=== PATIENT | male | born 1960 | race Hispanic/Latino ===

== ENCOUNTER → 2024-06-07 | Day surgery (SDC) | payer OTHER ==
[~2024-06-07] MED LIST: ALLOPURINOL300 MG PO; ASPIRIN EC81 MG PO; ATORVASTATIN CA20 MG PO; FENTANYL CITRATE/PF 100MCG/2 ML INJ ONE; GLIMEPIRIDE2 MG PO; LOSARTAN POTASS25 MG PO; METFORMIN HCL500 MG PO; PHENYLEPHRINE HCL 1% 10 MG/ML VIAL ONE; PROPOFOL IV EMULSION 10 MG/ML 20 ML VIAL ONE; PROPOFOL IV EMULSION 50 ML IV ONE; SODIUM CHLORIDE 0.9% 100 ML ONE
[2024-06-07] MEDS: LACTATED RINGER'S 1,000 ML ONE (06:06)
[2024-06-07 08:32] VITALS: TEMP 98.2
[2024-06-07 09:00] VITALS: BP 133/80; PULSE 64; RESP 15; O2SAT 99
== END | disposition home or self-care (01) ==
LOC: OR 06:25
PROVIDERS: ATTEND Internal Medicine Gastroenterology
DX: Z12.11 Encounter for screening for malignant neoplasm of colon (principal); K57.30 Diverticulosis of large intestine without perforation or abscess without bleeding; K64.8 Other hemorrhoids; K21.9 Gastro-esophageal reflux disease without esophagitis; E11.9 Type 2 diabetes mellitus without complications; I10 Essential (primary) hypertension; E78.5 Hyperlipidemia, unspecified; M10.9 Gout, unspecified; Z01.810 Encounter for preprocedural cardiovascular examination; Z79.82 Long term (current) use of aspirin; Z79.84 Long term (current) use of oral hypoglycemic drugs; Z79.899 Other long term (current) drug therapy; Z87.891 Personal history of nicotine dependence
CPT/HCPCS: 45378; 93005; J2371; J2704 ×2; J3010; J7050; J7121